=== PATIENT | male | born 1975 | race Caucasian/White ===

== ENCOUNTER → 2017-11-24 | Outpatient (CLI) | payer BC | LOC: FIMAGING 08:07 | PROVIDERS: ATTEND Internal Medicine | DX: K76.89 Other specified diseases of liver (principal) ==

== ENCOUNTER → 2018-05-23 | Outpatient (CLI) | payer BC | LOC: FIMAGING 09:23 | PROVIDERS: ATTEND Internal Medicine | DX: R74.0 Nonspecific elevation of levels of transaminase and lactic acid dehydrogenase [LDH] (principal); R74.8 Abnormal levels of other serum enzymes; Z90.49 Acquired absence of other specified parts of digestive tract ==